=== PATIENT | female | born 2000 | race Caucasian/White ===

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

== ENCOUNTER 2024-05-31 01:21 | Emergency (ER) | payer MEDICAID, OTHER ==
[~2024-05-31] VITALS: Ht 157.5 cm; Wt 88.0 kg
[2024-05-31 01:29] VITALS: BP_SYST 103; PULSE 105; RESP 20; TEMP 97.4; O2SAT 97
[2024-05-31] MEDS: NACL 0.9% 1,000 ML IV ONE ×2 (02:29→03:14)
[2024-05-31] MEDS: ONDANSETRON HCL 4 MG/2 ML VIAL IVP ONE (02:30)
[2024-05-31 02:58] LABS: BASOPHILS % (AUTO) 0.1 % (0.0-2.0); EOSINOPHILS # (AUTO) 0.1 K/uL (0.0-0.4); EOSINOPHILS % (AUTO) 0.5 % (0.0-4.0); HEMATOCRIT 38.4 % (36-48); HEMOGLOBIN 12.7 g/dL (12.0-16.0); LYMPHOCYTES # (AUTO) 0.6 K/uL (1.0-5.5); LYMPHOCYTES % (AUTO) 2.4 % (20.5-51.5); MEAN CORPUSCULAR HEMOGLOBIN 27 pg (27-31); MEAN CORPUSCULAR HGB CONC 33 % (32-36); MEAN CORPUSCULAR VOLUME 80 fL (79.0-98.0); MONOCYTES # (AUTO) 1.1 K/uL (0.0-1.0); MONOCYTES % (AUTO) 4.8 % (1.7-9.3); NEUTROPHILS # (AUTO) 21.7 K/uL (1.8-7.7); NEUTROPHILS % (AUTO) 92.2 % (40.0-70.0); PLATELET COUNT (AUTO) 370 K/uL (130-430); RED BLOOD CELL COUNT(AUTO) 4.78 MIL/uL (4.2-6.2); RED CELL DISTRIBUTION WIDTH 13.4 % (9.0-15.0); WHITE BLOOD COUNT (AUTO) 23.5 K/uL (4.8-10.8)
[2024-05-31 03:07] LABS: CALCIUM 8.7 mg/dL (8.4-11.0); CREATININE 0.76 mg/dL (0.55-1.30); POTASSIUM 4.6 mmol/L (3.5-5.1)
[2024-05-31] MEDS ORDERED: ONDA-8 TL (06:07)
[2024-05-31 06:15] VITALS: BP_SYST 103; PULSE 105; RESP 20; TEMP 97.4; O2SAT 97
[2024-05-31] MEDS ORDERED: METR-154 PO (06:15)
== END 2024-05-31 06:15 | disposition home or self-care (01) ==
LOC: SED 01:21
DX: A04.8 Other specified bacterial intestinal infections (principal); R55 Syncope and collapse; R11.2 Nausea with vomiting, unspecified; Z79.899 Other long term (current) drug therapy
CPT/HCPCS: 99283; 96374; 96361; 80048; 85025; 36415; J2405; J7030